=== PATIENT | female | born 1940 | race Caucasian/White ===

== ENCOUNTER → 2018-02-27 06:58 | Outpatient (CLI) | payer MEDICARE, SELFPAY ==
[2018-02-27 07:47] LABS: Add Manual Diff / Slide Review NO; Basophils Percent Auto 0.4 % (0-2); Eosinophils Percent Auto 3.7 % (2-4); Hematocrit 42.2 % (36-46); Hemoglobin 14.3 g/dL (12.0-16.0); Lymphocytes Percent Auto 39.8 % (25-40); Mean Corpuscular HGB Conc 33.9 % (30-36); Mean Corpuscular Hemoglobin 31.8 PG (26-34); Mean Corpuscular Volume 93.8 fL (80-100); Monocytes Percent Auto 9.7 % (3-14); Neutrophils Absolute Auto 2300 /uL (3000-5900); Neutrophils Percent Auto 46.4 % (50-75); Platelet Count 157 X10^3/uL (150-400); Red Blood Cell Count 4.49 X10^6/uL (4.0-5.2); Red Cell Distribution Width 13.1 % (11.6-14.8)
[2018-02-27 08:34] LABS: Alanine Aminotransferase 29 IU/L (9-52); Albumin 3.9 g/dL (3.5-5.0); Albumin Globulin Ratio 1.2 (1.0-2.8); Alkaline Phosphatase 67 U/L (38-126); Aspartate Aminotransferase 26 IU/L (14-36); BUN Creatinine Ratio 21.3 (6-22); Bilirubin Total 0.9 mg/dL (0.2-1.3); Blood Urea Nitrogen 17 mg/dL (7-17); Calcium 9.2 mg/dL (8.4-10.2); Carbon Dioxide 30 mmol/L (22-32); Chloride 103 mmol/L (98-107); Cholesterol 155 mg/dL (140-199); Estimated Glomerular Filt Rate > 60.0 mL/min (>60); Globulin 3.2 g/dL (1.7-4.1); Glucose 96 mg/dL (80-110); HDL Cholesterol 63 mg/dL (40-60); HEMOLYSIS < 15 (0-50); LDL Cholesterol Calculated 77 mg/dL (<100); Potassium 4.6 mmol/L (3.4-5.1); Sodium 142 mmol/L (137-145); Total Protein 7.1 g/dL (6.3-8.2); Triglycerides 73 mg/dL (35-150)
== END ==
PROVIDERS: PCP Family Medicine; Visit Provider Family Medicine
DX: E78.5 Hyperlipidemia, unspecified (principal)
CPT/HCPCS: 36415; 80053; 80061; 85025

== ENCOUNTER → 2018-08-05 08:23 | Outpatient (CLI) | payer MEDICARE, SELFPAY | PROVIDERS: PCP Family Medicine; Visit Provider Family Medicine | DX: Z12.31 Encounter for screening mammogram for malignant neoplasm of breast (principal); Z53.9 Procedure and treatment not carried out, unspecified reason | CPT/HCPCS: 77063; 77067 ==

== ENCOUNTER → 2018-08-21 08:47 | Outpatient (CLI) | payer MEDICARE, SELFPAY ==
--- NOTE | 2018-08-21 08:48 | DI.MG.S_ITS ---
BILATERAL DIGITAL DIAGNOSTIC MAMMOGRAM 3D/2D: 08/21/2018 CLINICAL: Left nipple inversion. Comparison is made to exams dated: 09/02/2015 mammogram, 06/27/2013 mammogram, and 08/26/2011 mammogram - [facility]. The tissue of both breasts is predominantly fatty. No significant masses, calcifications, or other findings are seen in either breast. IMPRESSION: INCOMPLETE: NEEDS ADDITIONAL IMAGING EVALUATION There is no abnormality seen in the left breast to correspond with the nipple abnormality in the sub-areolar depth, however, ultrasound is recommended. This exam was interpreted at Station ID: [id number]. NOTE: For mammograms, a report in lay terms will be sent to the patient. Approximately 15% of breast malignancies will not be visualized mammographically. In the management of a palpable breast mass, a negative mammogram must not discourage biopsy of a clinically suspicious lesion. Electronically Signed By: Pedro Orozco M.D. [email or web address]/:08/21/2018 10:19:02 letter sent: Need Ultrasound ACR BI-RADS Category 0: Incomplete [id number]
--- NOTE | 2018-08-21 08:48 | DI.US.S_ITS ---
LIMITED ULTRASOUND OF LEFT BREAST: 08/21/2018 CLINICAL: Left nipple itching. Comparison is made to exams dated: 08/21/2018 mammogram, 09/02/2015 mammogram, and 06/27/2013 mammogram - [facility]. Real-time ultrasound of the left breast retroareolar was performed on the area of interest. No discrete cystic or solid mass identified in the left subareolar region. IMPRESSION: NEGATIVE There is no sonographic evidence of malignancy. There is no abnormality seen in the left breast to correspond with the nipple abnormality in the sub-areolar depth, however, clinical followup is recommended to exclude Paget's disease. A 1 year screening mammogram is recommended. This exam was interpreted at Station ID: [id number]. Electronically Signed By: Pedro Orozco M.D. [email or web address]/:08/21/2018 10:15:55 letter sent: Clinical Evaluation Ultrasound BI-RADS: 1 Negative
== END ==
PROVIDERS: PCP Family Medicine; Visit Provider Family Medicine
DX: R92.8 Other abnormal and inconclusive findings on diagnostic imaging of breast (principal); N64.59 Other signs and symptoms in breast; L29.8 Other pruritus
CPT/HCPCS: 76642; 77066; G0279

== ENCOUNTER 2018-09-26 10:37 | Day surgery (SDC) | payer MEDICARE, SELFPAY ==
[2018-09-20 14:45] VITALS: BMI 32.2
--- NOTE | 2018-09-26 | PATH_ITS ---
[facility] Accession Number: [id number] . 01 Material submitted: . LEFT BREAST NIPPLE . 01 Diagnosis: Left Breast Nipple, Biopsies: Most consistent with lichen simplex chronicus. . Note: No malignancy is identified. Initial and deeper levels were examined. PAS stain is negative for fungal hyphae. HER-2/yesy immunostain performed supports the above diagnosis. Clinical pathological correlation is advised. MRV/10/02/2018 . 01 Comment: This case was reviewed with Dr. Vivienne Mejia who concurs with the interpretation. . . . . 01 Electronically signed: . Radha Felder MD, Dermatopathologist NPI- [id number] . 01 Gross description: . Received one formalin-filled container labeled with the patient's name and labeled left breast nipple are two 0.3 cm in diameter kohli-rizzo rough portions of tissue, excised to depths of 0.4 cm. Inked blue and entirely submitted in cassette A1. Also, received in the same container is a 0.5 x 0.5 x 0.4 cm kohli-rizzo friable portion of tissue. Inked blue, bisected and entirely submitted in cassette A2. ([facility]:[id number]) /[facility] . 01 Pathologist provided ICD-10: L98.9 . 01 CPT . 172773, 035049, [id number], [id number], [id number] Performed at: [address] [facility] [address], [place], [place] [id number] MD Pedro Griffin MD Phone: [phone]
--- NOTE | 2018-09-26 04:43 | PM.HP.1 ---
History of Present Illness Date Patient Seen: 09/26/18 Time Patient Seen: 04:44 Chief complaint: [id number] Narrative: Patient recently seen for left nipple inversion and associated skin changes around the areola suspicious for possible Paget's disease. Mammography and ultrasound unremarkable. I recommended biopsy 1 month ago. Patient sought a 2nd opinion from another surgeon who concurred with my recommendation. Patient returns now consented for left nipple biopsy. Otherwise she has had no new complaints. No new drainage. No changes otherwise of the nipple. No new breast masses on self examination. Essentially this document serves as an updated history and physical examination to the 1 dictated exactly 31 days ago. Patient History Family & Social History Tobacco & Substance use: Smoking Status Never smoker alcohol intake never Meds Home Medications Medication Instructions Recorded Confirmed Type CALCIUM CARBONATE/VITAMIN D3 1 tab PO Q DAY #0 09/05/12 09/20/18 History (Osteo-Poretical Tablet) simvastatin 20 mg tablet 10 mg PO HS #90 tab 03/06/18 09/20/18 Rx nystatin 100,000 unit/gram topical 1 applictn TOP BID #15 gram 08/28/18 09/20/18 Rx powder Allergies Allergy/AdvReac Type Severity Reaction Status Date / Time No Known Drug Allergies Allergy Verified 08/28/18 10:57 Review of Systems Review of Systems No changes All systems reviewed & are unremarkable except as noted in HPI and below Exam Narrative Exam Narrative: Examination has not changed from that documented in August 2018 31 days ago. Objective Labs Labs: No new laboratory or radiographic studies for review since her initial consultation last month Assessment & Plan Plan: Assessment/Plan Narrative: 77-year-old female with left nipple changes suspicious for possible Paget's disease or other neoplastic changes. We will proceed today with scheduled left nipple biopsy as planned. Again, the procedure and all of its associated risks were discussed with her at our initial consultation August 2018 and subsequently confirmed at 2nd opinion by another surgeon. We will proceed with biopsy today as planned. Please refer to the documented August 2018 for further details.
--- NOTE | 2018-09-26 04:48 | P.HP_ITS ---
History of Present Illness Date Patient Seen: 09/26/18 Time Patient Seen: 04:44 Chief complaint: [id number] Narrative: Patient recently seen for left nipple inversion and associated skin changes around the areola suspicious for possible Paget's disease. Mammography and ultrasound unremarkable. I recommended biopsy 1 month ago. Patient sought a 2nd opinion from another surgeon who concurred with my recommendation. Patient returns now consented for left nipple biopsy. Otherwise she has had no new complaints. No new drainage. No changes otherwise of the nipple. No new breast masses on self examination. Essentially this document serves as an updated history and physical examination to the 1 dictated exactly 31 days ago. Patient History Family & Social History Tobacco & Substance use: Smoking Status Never smoker alcohol intake never Meds Home Medications Medication Instructions Recorded Confirmed Type CALCIUM CARBONATE/VITAMIN D3 1 tab PO Q DAY #0 09/05/12 09/20/18 History (Osteo-Poretical Tablet) simvastatin 20 mg tablet 10 mg PO HS #90 tab 03/06/18 09/20/18 Rx nystatin 100,000 unit/gram topical 1 applictn TOP BID #15 gram 08/28/18 Rx powder Allergies Allergy/AdvReac Type Severity Reaction Status Date / Time No Known Drug Allergies Allergy Verified 08/28/18 10:57 Review of Systems Review of Systems No changes All systems reviewed & are unremarkable except as noted in HPI and below Exam Narrative Exam Narrative: Examination has not changed from that documented in August 2018 31 days ago. Objective Labs Labs: No new laboratory or radiographic studies for review since her initial consultation last month Assessment & Plan Plan: Assessment/Plan Narrative: 77-year-old female with left nipple changes suspicious for possible Paget's disease or other neoplastic changes. We will proceed today with scheduled left nipple biopsy as planned. Again, the procedure and all of its associated risks were discussed with her at our initial consultation August 2018 and subsequently confirmed at 2nd opinion by another surgeon. We will proceed with biopsy today as planned. Please refer to the documented August 2018 for further details.
[2018-09-26 11:20] VITALS: BP 167/80; PULSE 66; RESP 16; TEMP 36.4; O2SAT 97; BMI 32.2
[2018-09-26] MEDS: LACTATED RINGERS 1,000 ML 42 ML IV (11:30)
--- NOTE | 2018-09-26 12:33 | PM.PREOP ---
Pre-operative Note Interval Note History & Physical reviewed/Exam performed by Physician: Yes Changes to H&P: No H&P completed within 30 days and has changed as indicated here:: Patient seen and examined in the preoperative area. Surgical site marked accordingly. No changes to the history and physical examination. Proceed with biopsy today as planned.
[2018-09-26] MEDS: CEFAZOLIN 2 GM/100 ML FROZ.PIGGY IV (12:46)
--- NOTE | 2018-09-26 13:05 | SUR.OPER ---
Supine on padded OR bed, head on pillow, arms secured on padded arm boards at <90 degrees abduction, legs uncrossed, safety belt at thigh, tape over blanket over lower legs.
[2018-09-26] MEDS: BUPIVACAINE 0.5% (PF) VIAL 30 ML INJ (13:10)
--- NOTE | 2018-09-26 13:19 | PM.OP.1 ---
Operative Date/Time/Diagnoses Date of procedure: 09/26/18 Time of procedure: 13:19 Pre-op diagnosis: Left nipple inversion with associated skin changes possibly consistent with Paget's disease Post-op diagnosis: same Procedure & Clinicians Procedure: Left nipple incisional biopsy and 4 mm punch biopsies x 2 Same procedure as scheduled: Yes Indications: 77-year-old female who presented with progressive left nipple inversion with associated scaly rash and erythema of the entire nipple complex recently. Findings were possibly consistent with Paget's disease although she had no palpable mass or other radiographic abnormalities. Nevertheless incisional and punch biopsies were recommended. Surgeon: Faizan Beverly Click Yes if Unassisted: Yes Anesthesia Type: MAC +/- and Local Operative Notes Findings: 1. Inversion of the left nipple without palpable mass or drainage 2. Thickening of the medial aspect of the nipple itself once it was everted for full examination 3. Mild thickening and erythema of the areola particularly superiorly and medially Closure Type: primary Specimen(s): other (Left nipple biopsies) Implants & Drains: None Estimated Blood Loss (mL): 5 Blood products transfused: none Procedure in detail: After obtaining informed consent the patient was brought to the operating room placed supine on the table. The left breast and nipple complex were prepped and draped in usual sterile fashion. SCOAP time out was performed per standard protocol. After satisfactory induction of sedation per Anesthesiology Service the nipple complex was anesthetized with 0.5% plain Marcaine local anesthesia. Examination was then performed with bimanual palpation and findings are as above. Nipple was everted between the surgeon's finger and thumb and the area examined as above. Fifteen scalpel blade was used to incise full thickness along the medial aspect of the nipple itself thereby liberating a portion of the nipple for histologic examination. Tissue was excised with Metzenbaum scissors and sent for permanent section. Hemostasis was achieved and the area was closed with interrupted subcuticular 4 O Monocryl suture. 4 mm dermal punch biopsies were then taken at the base of the nipple including the areola medially and superiorly. Again, specimens were sent for permanent section. Hemostasis was verified and sterile dressing was applied. Patient was then taken to outpatient recovery area in stable condition. Complications: none Condition: stable Disposition: same day surgery Plan for aftercare: 1. Discharge home 2. Follow up in surgery Clinic in 2 weeks
[2018-09-26 13:25] VITALS: BP 117/71; PULSE 80; RESP 20; TEMP 36.8; O2SAT 95
== END 2018-09-26 13:40 | disposition home or self-care (01) ==
PROVIDERS: PCP Family Medicine; Visit Provider Surgery
PROC: (CPT 19301; principal; 2018-09-26 12:15)
DX: L98.9 Disorder of the skin and subcutaneous tissue, unspecified (principal)
CPT/HCPCS: 19101; 11104; 11105; 88305; 88312; 88341; 88342; J0690; J2250; J2704; J3010

== ENCOUNTER → 2018-12-15 10:36 | Outpatient (CLI) | payer MEDICARE, SELFPAY ==
[2018-12-18 18:18] LABS: Fecal Immunochemical Test NOT DETECTED (NOT DETECTED)
== END ==
PROVIDERS: PCP Family Medicine; Visit Provider Family Medicine
DX: Z00.00 Encounter for general adult medical examination without abnormal findings (principal); Z12.11 Encounter for screening for malignant neoplasm of colon
CPT/HCPCS: 82274

== ENCOUNTER → 2019-02-19 06:52 | Outpatient (CLI) | payer MEDICARE, SELFPAY ==
[2019-02-19 09:30] LABS: Alanine Aminotransferase 21 IU/L (9-52); Albumin Globulin Ratio 1.3 (1.0-2.8); Alkaline Phosphatase 72 U/L (38-126); Aspartate Aminotransferase 26 IU/L (14-36); BUN Creatinine Ratio 22.5 (6-22); Bilirubin Total 0.7 mg/dL (0.2-1.3); Blood Urea Nitrogen 18 mg/dL (7-17); Calcium 9.3 mg/dL (8.4-10.2); Carbon Dioxide 30 mmol/L (22-32); Chloride 104 mmol/L (98-107); Cholesterol 154 mg/dL (140-199); Estimated Glomerular Filt Rate > 60.0 mL/min (>60); Globulin 3.1 g/dL (1.7-4.1); Glucose 93 mg/dL (80-110); HDL Cholesterol 48 mg/dL (40-60); HEMOLYSIS < 15 (0-50); LDL Cholesterol Calculated 79 mg/dL (<100); Potassium 4.3 mmol/L (3.4-5.1); Sodium 139 mmol/L (137-145); Total Protein 7.1 g/dL (6.3-8.2); Triglycerides 136 mg/dL (35-150)
== END ==
PROVIDERS: PCP Family Medicine; Visit Provider Family Medicine
DX: E78.5 Hyperlipidemia, unspecified (principal); I10 Essential (primary) hypertension
CPT/HCPCS: 36415; 80053; 80061

== ENCOUNTER → 2019-08-29 15:57 | Outpatient (CLI) | payer MEDICARE, SELFPAY ==
--- NOTE | 2019-08-29 | DI.MG.S_ITS ---
BILATERAL DIGITAL SCREENING MAMMOGRAM 3D/2D WITH CAD: 08/29/2019 CLINICAL: Routine screening. Comparison is made to exams dated: 08/21/2018 mammogram, 09/02/2015 mammogram, and 06/27/2013 mammogram - [facility]. There are scattered fibroglandular elements in both breasts. Current study was also evaluated with a Computer Aided Detection (CAD) system. No significant masses, calcifications, or other findings are seen in either breast. There has been no significant interval change. IMPRESSION: NEGATIVE There is no mammographic evidence of malignancy. A 1 year screening mammogram is recommended. This exam was interpreted at Station ID: [id number]. NOTE: For mammograms, a report in lay terms will be sent to the patient. Approximately 15% of breast malignancies will not be visualized mammographically. In the management of a palpable breast mass, a negative mammogram must not discourage biopsy of a clinically suspicious lesion. Electronically Signed By: Adi holland/ariadna:08/29/2019 17:01:55 letter sent: Normal Exam ACR BI-RADS Category 1: Negative [id number]
== END ==
PROVIDERS: PCP Family Medicine; Visit Provider Family Medicine
DX: Z12.31 Encounter for screening mammogram for malignant neoplasm of breast (principal)
CPT/HCPCS: 77063; 77067

== ENCOUNTER → 2020-02-25 07:06 | Outpatient (CLI) | payer MEDICARE, SELFPAY ==
[2020-02-25 08:09] LABS: Alanine Aminotransferase 20 IU/L (<35); Albumin 4.2 g/dL (3.5-5.0); Albumin Globulin Ratio 1.4 (1.0-2.8); Alkaline Phosphatase 86 U/L (38-126); Aspartate Aminotransferase 30 IU/L (14-36); BUN Creatinine Ratio 24.4 (6-22); Bilirubin Total 0.6 mg/dL (0.2-1.3); Blood Urea Nitrogen 19 mg/dL (7-17); Calcium 9.5 mg/dL (8.4-10.2); Carbon Dioxide 26 mmol/L (22-32); Chloride 106 mmol/L (98-107); Cholesterol 164 mg/dL (140-199); Estimated Glomerular Filt Rate > 60.0 mL/min (>60); Glucose 104 mg/dL (80-110); HDL Cholesterol 59 mg/dL (40-60); HEMOLYSIS < 15 (0-50); LDL Cholesterol Calculated 83 mg/dL (<100); Potassium 4.5 mmol/L (3.4-5.1); Sodium 140 mmol/L (137-145); Total Protein 7.2 g/dL (6.3-8.2); Triglycerides 110 mg/dL (35-150)
== END ==
PROVIDERS: PCP Family Medicine; Referring Provider Family Medicine; Visit Provider Family Medicine
DX: E78.5 Hyperlipidemia, unspecified (principal); I10 Essential (primary) hypertension
CPT/HCPCS: 36415; 80053; 80061

== ENCOUNTER → 2020-03-07 07:11 | Outpatient (CLI) | payer MEDICARE, SELFPAY ==
[2020-03-10 13:36] LABS: Fecal Immunochemical Test Negative (Negative)
== END ==
PROVIDERS: PCP Family Medicine; Referring Provider Family Medicine; Visit Provider Family Medicine
DX: Z12.11 Encounter for screening for malignant neoplasm of colon (principal)
CPT/HCPCS: 82274

== ENCOUNTER → 2020-06-24 10:47 | Outpatient (CLI) | payer MEDICARE, SELFPAY ==
[2020-06-24 12:46] LABS: Alanine Aminotransferase 17 IU/L (<35); Albumin 4.5 g/dL (3.5-5.0); Albumin Globulin Ratio 1.3 (1.0-2.8); Alkaline Phosphatase 82 U/L (38-126); Aspartate Aminotransferase 28 IU/L (14-36); BUN Creatinine Ratio 20.5 (6-22); Bilirubin Total 0.8 mg/dL (0.2-1.3); Blood Urea Nitrogen 15 mg/dL (7-17); Calcium 9.7 mg/dL (8.4-10.2); Carbon Dioxide 27 mmol/L (22-32); Chloride 106 mmol/L (98-107); Estimated Glomerular Filt Rate > 60.0 mL/min (>60); Globulin 3.5 g/dL (1.7-4.1); Glucose 109 mg/dL (80-110); HEMOLYSIS < 15 (0-50); Potassium 3.9 mmol/L (3.4-5.1); Sodium 141 mmol/L (137-145)
[2020-06-24 13:24] LABS: TSH w/ Reflex to FT4 1.21 uIU/mL (0.47-4.68)
== END ==
PROVIDERS: PCP Family Medicine; Referring Provider Internal Medicine; Visit Provider Internal Medicine
DX: E78.5 Hyperlipidemia, unspecified (principal); I10 Essential (primary) hypertension
CPT/HCPCS: 36415; 80053; 84443

== ENCOUNTER → 2020-07-28 08:43 | Outpatient (CLI) | payer MEDICARE, SELFPAY ==
[2020-07-28 10:49] LABS: BUN Creatinine Ratio 20.7 (6-22); Blood Urea Nitrogen 17 mg/dL (7-17); Calcium 9.1 mg/dL (8.4-10.2); Carbon Dioxide 36 mmol/L (22-32); Chloride 102 mmol/L (98-107); Estimated Glomerular Filt Rate > 60.0 mL/min (>60); Glucose 103 mg/dL (80-110); HEMOLYSIS 15 (0-50); Potassium 3.8 mmol/L (3.4-5.1); Sodium 137 mmol/L (137-145)
[2020-07-28 15:35] LABS: Creatinine Urine Random 107.2 mg/dL
[2020-07-28 15:41] LABS: Microalbumin Urine Random < 0.6 mg/dL (0-1.6)
== END ==
PROVIDERS: PCP Family Medicine; Referring Provider Family Medicine; Visit Provider Family Medicine
DX: I10 Essential (primary) hypertension (principal)
CPT/HCPCS: 36415; 80048; 82043; 82570

== ENCOUNTER → 2020-11-17 14:11 | Outpatient (CLI) | payer MEDICARE, SELFPAY ==
[2020-11-17 15:26] LABS: Blood Urea Nitrogen 26 mg/dL (7-17); Calcium 9.4 mg/dL (8.4-10.2); Carbon Dioxide 33 mmol/L (22-32); Chloride 98 mmol/L (98-107); Estimated Glomerular Filt Rate 51.1 mL/min (>60); Glucose 119 mg/dL (80-110); HEMOLYSIS < 15 (0-50); Potassium 3.6 mmol/L (3.4-5.1); Sodium 135 mmol/L (137-145)
== END ==
PROVIDERS: PCP Family Medicine; Referring Provider Family Medicine; Visit Provider Family Medicine
DX: I10 Essential (primary) hypertension (principal)
CPT/HCPCS: 36415; 80048

== ENCOUNTER → 2020-12-26 16:59 | Outpatient (CLI) | payer MEDICARE, SELFPAY ==
[2020-12-26 17:44] LABS: BUN Creatinine Ratio 25.9 (6-22); Blood Urea Nitrogen 22 mg/dL (7-17); Calcium 9.8 mg/dL (8.4-10.2); Carbon Dioxide 28 mmol/L (22-32); Chloride 105 mmol/L (98-107); Estimated Glomerular Filt Rate > 60.0 mL/min (>60); Glucose 102 mg/dL (80-110); HEMOLYSIS < 15 (0-50); Potassium 4.2 mmol/L (3.4-5.1); Sodium 140 mmol/L (137-145)
[2021-01-05 10:38] LABS: Plama Renin, LC/MS/MS 0.299 ng/mL/hr (0.167-5.380)
== END ==
PROVIDERS: PCP Family Medicine; Referring Provider Family Medicine; Visit Provider Family Medicine
DX: I10 Essential (primary) hypertension (principal)
CPT/HCPCS: 36415; 80048; 82088; 84244

== ENCOUNTER → 2021-02-06 10:04 | Outpatient (CLI) | payer MEDICARE, SELFPAY ==
--- NOTE | 2021-02-06 | DI.MG.S_ITS ---
BILATERAL DIGITAL SCREENING MAMMOGRAM 3D/2D WITH CAD: 02/06/2021 CLINICAL: Routine screening. Comparison is made to exams dated: 08/29/2019 mammogram, 08/21/2018 mammogram, and 09/02/2015 mammogram - [facility]. There are scattered fibroglandular elements in both breasts. Current study was also evaluated with a Computer Aided Detection (CAD) system. There is a benign calcification in both breasts. No significant masses, calcifications, or other findings are seen in either breast. There has been no significant interval change. IMPRESSION: BENIGN There is no mammographic evidence of malignancy. A 1 year screening mammogram is recommended. This exam was interpreted at Station ID: [id number]. NOTE: For mammograms, a report in lay terms will be sent to the patient. Approximately 15% of breast malignancies will not be visualized mammographically. In the management of a palpable breast mass, a negative mammogram must not discourage biopsy of a clinically suspicious lesion. Electronically Signed By: Mahin Ashby acr/penrad:02/06/2021 13:11:31 letter sent: Normal Exam ACR BI-RADS Category 2: Benign Finding(s) 3342F
== END ==
PROVIDERS: PCP Family Medicine; Referring Provider Family Medicine; Visit Provider Family Medicine
DX: Z12.31 Encounter for screening mammogram for malignant neoplasm of breast (principal)
CPT/HCPCS: 77063; 77067